=== PATIENT | male | born 1960 | race Caucasian/White ===

== ENCOUNTER 2019-12-18 09:39 | Emergency (ER) | payer SELFPAY ==
[2019-12-18 09:41] VITALS: BP 141/73; PULSE 66; RESP 18; TEMP 36.1; O2SAT 99
--- NOTE | 2019-12-18 10:50 | ED.ALLEREA ---
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 Patient denies similar occurrence in the past Related Data Home Medications Medication Instructions Recorded Confirmed amlodipine 10 mg PO DAILY 12/18/19 atorvastatin 80 mg PO DAILY 12/18/19 carvedilol 25 mg PO BID 12/18/19 doxazosin 1 mg PO DAILY 12/18/19 hydrochlorothiazide 25 mg PO DAILY 12/18/19 lisinopril 20 mg PO DAILY 12/18/19 tamsulosin [Flomax] 0.4 mg PO DAILY 12/18/19 Allergies Allergy/AdvReac Type Severity Reaction Status Date / Time No Known Allergies Allergy Verified 12/18/19 09:54 Review of Systems Review of Systems: All systems reviewed & are unremarkable except as noted in HPI and below PMFSH Past Medical History Medical History (Updated 12/18/19 @ 10:57 by Luis Carrasquillo PA-C) AAA (abdominal aortic aneurysm) Hyperlipidemia Hypertension Social History Social History (Updated 12/18/19 @ 10:53 by Luis Carrasquillo PA-C) Smoking status: Current every day smoker Exam Narrative: Exam Narrative: GENERAL: Well-appearing, well-nourished, and in no acute distress. HEAD: Normocephalic, atraumatic. EYES: PERRLA and EOMI. some irritation around the eyes and cheeks no cellulitic findings no drainage from the eyes ENT: Nares clear, no rhinorrhea or epistaxis. Mucous membranes moist. Oropharynx without tonsillar hypertrophy exudate or other lesions. No angioedema in the oropharynx NECK: Supple. No adenopathy or masses. No stridor CHEST: Clear to auscultation. No respiratory distress. No wheezes rales or rhonchi HEART: Regular rate and rhythm. No murmur heard. EXTREMITIES: Normal range of motion. No edema. SKIN: Warm, dry, irritation on the bilateral cheeks and around the eyes NEURO: No focal deficits. Alert and oriented x3. Normal speech and gait PSYCH: Normal mood and affect. Course Course Emergency Course: Patient in the room in no distress aware of case findings treatment plan and diagnosis agreeing to follow-up as directed or to return if symptoms worsen or concern. Patient was given steroids and antihistamines in the emergency department Vital Signs Vital signs: Vital Signs Temperature 96.9 F L 12/18/19 09:41 Pulse Rate 66 12/18/19 09:41 Respiratory Rate 18 12/18/19 09:41 Blood Pressure 141/73 H 12/18/19 09:41 Pulse Oximetry 99 12/18/19 09:41 Temperature 96.9 F L 12/18/19 09:41 Pulse Rate 66 12/18/19 09:41 Respiratory Rate 18 12/18/19 09:41 Blood Pressure 141/73 H 12/18/19 09:41 Pulse Oximetry 99 12/18/19 09:41 MDM - Allergic Reaction MDM Narrative Medical decision making narrative: Patient with likely allergic reaction secondary to environmental exposure given the story no other concerning findings afebrile nontoxic-appearing no angioedema or any signs of airway compromise or cellulitic changes felt appropriate for outpatient reevaluation tried with steroids and antihistamines and removal of the offending agent Discharge Plan Discharge Clinical Impression: Allergic reaction Patient Disposition: Home, Self-Care Condition: Stable Instructions: Antibiotic Form, Allergies (ED) Additional Instructions: Follow up with your primary care provider within 5-7 days. Go to ER for shortness of breath, difficulty breathing, chest pain, fever/chills, weakness, nauseau/vomitting, unable to swallow or open the mouth, any increase in redness swelling pain etc. or any other co
[2019-12-18] MEDS: diphenhydrAMINE HCl INJ 50 MG/ML VIAL 25 MG IV PUSH (10:57)
[2019-12-18] MEDS: FAMOTIDINE 20 MG/2 ML VIAL IV PUSH (10:57)
--- NOTE | 2019-12-18 11:28 | PC.NURSE ---
Itching to eyes relieved. Still has swelling to eyes. No resp distress.
== END 2019-12-18 11:29 | disposition home or self-care (01) ==
PROVIDERS: Emergency Provider Emergency Medicine
DX: T78.40XA Allergy, unspecified, initial encounter (principal); E78.5 Hyperlipidemia, unspecified; I10 Essential (primary) hypertension; F17.200 Nicotine dependence, unspecified, uncomplicated
CPT/HCPCS: 96374; 96375; 99284; J1100; J1200